=== PATIENT | female | born 1990 | race Caucasian/White ===

== ENCOUNTER 2018-10-25 07:25 | Emergency (ER) | payer SELFPAY ==
[~2018-10-25] VITALS: Ht 147.3 cm; Wt 52.0 kg
[2018-10-25 07:37] VITALS: BP 145/90
[2018-10-25] MEDS ORDERED: ACETAMINOPHEN 325MG TABLET PO ONE (09:15)
== END 2018-10-25 10:55 | disposition home or self-care (01) ==
LOC: ER 07:25
DX: S80.02XA Contusion of left knee, initial encounter (principal); S60.222A Contusion of left hand, initial encounter; M54.6 Pain in thoracic spine; V49.40XA Driver injured in collision with unspecified motor vehicles in traffic accident, initial encounter; Y93.89 Activity, other specified; Y92.89 Other specified places as the place of occurrence of the external cause; Y99.8 Other external cause status
CPT/HCPCS: 72070; 73130; 73562; 81025; 99283